=== PATIENT | male | born 1950 | race Caucasian/White ===

== ENCOUNTER 2019-03-04 21:34 | Inpatient (IN) ==
[2019-03-04] MEDS ORDERED: CLINDAMYCIN 600 MG/D5W 600 MG/50 ML IVPB IV ONE (23:00)
[2019-03-04 23:17] LABS: BASO# 0.02 X1000 (0.0-0.2); BASO% 0.2 % (0.0-0.8); EOS# 0.59 X1000 (0.0-0.7); EOS% 5.4 % (0.0-10.0); HEMATOCRIT 49.8 % (42.0-52.0); HEMOGLOBIN 16.3 g/dL (14.0-18.0); IMM GRAN# 0.02 X1000 (0.0-0.04); IMM GRAN% 0.2 % (0.0-0.5); LYMPH# 0.74 X1000 (1.2-3.4); LYMPH% 6.8 % (20.5-51.1); MCH 28.3 PG (27-31); MCHC 32.7 g/dL (33-37); MCV 86.5 FL (81-99); MONO# 0.76 X1000 (0.11-0.59); MPV 9.1 FL (7.4-10.4); NEUT# 8.78 X1000 (1.4-6.5); NEUT% 80.4 % (42.2-75.2); PLT 351 X1000 (130-400); RBC 5.76 XMIL (4.7-6.1); RDW 15.5 % (11.5-14.5); WBC 10.91 X1000 (4.8-10.8)
[2019-03-04 23:19] LABS: ALB/GLOB RATIO 1.4; ALBUMIN 4.6 g/dL (3.5-5.0); CALCIUM 9.3 mg/dL (8.8-10.2); CREATININE 1.4 mg/dL (0.7-1.2); POTASSIUM 5.2 mmol/L (3.5-5.1); TOTAL BILIRUBIN 0.42 mg/dL (0.20-1.00)
--- NOTE | 2019-03-04 23:27 | PROVIDER DOCUMENTATION ---
HPI-Rash/Wound/ReCheck - General Chief Complaint: Sores/Lesions Stated Complaint: CELLULITIS LEGS AND ARMS Time Seen by Provider: 03/04/19 23:07 Allergies/Adverse Reactions: Allergies Allergy/AdvReac Type Severity Reaction Status Date / Time No Known Allergies Allergy Verified 05/06/16 22:32 Home Medications: Home Medication List Medication Instructions Recorded Confirmed Last Taken Type Aspirin 81 mg PO QAM 05/06/16 05/06/16 05/06/16 08:00 History - History of Present Illness-Dermatology Nature of Presenting Problem: HPI: Pt reports to ED with bilateral lower extremity cellulitis. He was treated twice with keflex and bactrim, has failed OP therapy. Has DVT done 3 days was neg. Location: reports: lower extremity Quality: reports: painful Severity: reports: moderate Onset/Duration: reports: other (2 weeks ago) Timing: reports: still present Context/Associated Symptoms: reports: abrasion, edema, fever, lesion Identifiable cause?: No Exposure: reports: unknown cause Similar Symptoms Previously?: Yes Recently seen or treated by another doctor?: Yes Review of Systems - Adult - REVIEW OF SYSTEMS - ADULT Constitutional: reports: no symptoms reported Eyes: reports: no symptoms reported Ears, Nose, Mouth & Throat: reports: no symptoms reported Cardiovascular: reports: no symptoms reported Respiratory: reports: no symptoms reported Gastrointestinal: reports: no symptoms reported Genitourinary: reports: no symptoms reported Musculoskeletal: reports: no symptoms reported Integumentary: reports: see HPI Neurological: reports: no symptoms reported Psychiatric: reports: no symptoms reported Endocrine: reports: no symptoms reported Hematologic/Lymphatic: reports: no symptoms reported Allergic/Immunologic: reports: no symptoms reported All Other Systems: Reviewed and Negative Past History - Adult - PAST MEDICAL HISTORY-ADULT Review of Records: reports: Old Records Reviewed, Nursing Assessment Review, Medications Reviewed, Social history reviewed & non-contributory. Major Childhood Illnesses: reports: denies history Cardiovascular: reports: denies history Respiratory: reports: denies history Gastrointestinal: reports: denies history Obstetrical/Gynecological: reports: denies history Genitourinary: reports: denies history Musculoskeletal: reports: denies history Neurological: reports: denies history Endocrine/Immune: reports: denies history Other Conditions: reports: denies history - PRIOR SURGERIES/PROCEDURES Surgical/Procedure History: reports: none - IMMUNIZATION STATUS Childhood Immunizations: See Nurse Assessment Flu Vaccine: See Nurse Assessment - FAMILY HISTORY Family History: reviewed, not pertinent - SOCIAL HISTORY Smoking: denies Substance Use: none/never Alcohol Use Frequency: never Number of drinks per typical drinking period:: 2 drinks Living Situation: family Physical Exam-General - PHYSICAL EXAM-ADULT Initial Vital Signs Reviewed: Yes - CONSTITUTIONAL General Appearance: appears well, alert - EYES Eyes: PERRL/EOMI, pink conjunctivae - HEAD, EARS, NOSE, MOUTH & THROAT HENMT: normocephalic/atraumatic, moist mucous membranes - NECK Neck: full range of motion - RESPIRATORY Respiratory: chest non-tender, lungs clear, normal breath sounds - CARDIOVASCULAR Cardiovascular: normal peripheral pulses, regular rate, rhythm, no edema - GASTROINTESTINAL (ABDOMEN) Abdominal Exam: normal bowel sounds, non tender, soft. negative: guarding, rigid, rebound, tenderness - MUSCULOSKELETAL Back Exam: normal inspection, no CVA tenderness Extremity: normal range of motion, other (bilateral cellulitis extending to knee, moderate swelling. no palpable veins.) Peripheral Pulses: radial (R): 2+, radial (L): 2+, dorsalis-pedis (R): 2+, dorsalis-pedis (L): 2+ Progress - PLAN OF CARE/RESULTS Progress/Plan/Lab Results: Vital Signs - 8 hr 03/04/19 21:39 Temperature 99.1 F Pulse Rate 101 H Respiratory Rate 19 Blood Pressure 125/66 O2 Sat by Pulse Oximetry 100 Laboratory Results - last 24 hr 03/04/19 03/04/19 03/04/19 22:14 22:14 22:14 WBC 10.91 H RBC 5.76 Hgb 16.3 Hct 49.8 MCV 86.5 MCH 28.3 MCHC 32.7 L RDW Std Deviation 15.5 H Plt Count 351 MPV 9.1 Immature Gran % (Auto) 0.2 Neut % (Auto) 80.4 H Lymph % (Auto) 6.8 L [place] % (Auto) 7.0 Eos % (Auto) 5.4 Baso % (Auto) 0.2 Immature Gran # (Auto) 0.02 Neut # (Auto) 8.78 H Lymph # (Auto) 0.74 L [place] # (Auto) 0.76 H Eos # (Auto) 0.59 Baso # (Auto) 0.02 Sodium 136 Potassium 5.2 H Chloride 95 L Carbon Dioxide 27 Anion Gap 14 BUN 34 H Creatinine 1.4 H Estimated GFR/1.73 m2 51 BUN/Creatinine Ratio 24 Glucose 102 Calculated Osmolality 280 Calcium 9.3 Total Bilirubin 0.42 AST 19 ALT 14 Alkaline Phosphatase 76 Total Protein 8.0 Albumin 4.6 Globulin 3.4 Albumin/Globulin Ratio 1.4 Plasma Lactate 0.9 Orders Category Date Time Status Saline Loc NOW Care 03/04/19 23:27 Active BLOOD CULTURE [BLDCUL] Stat Lab 03/04/19 22:37 Received CBC WITH ELECTRONIC DIFF [HEME] Stat Lab 03/04/19 22:14 Completed CMP [COMPREHENSIVE METABOLIC PANEL] [CHEM] Stat Lab 03/04/19 22:14 Completed LACTATE, PLASMA [CHEM] Stat Lab 03/04/19 22:14 Completed Clindamycin 600 mg/D5w Med 03/04/19 23:00 Discontinued 600 mg in 50 ml IV NOW Clindamycin 600 mg/D5w Med 03/04/19 23:30 Ordered 600 mg in 50 ml IV Q8H A/P: Bilateral cellulitis to bilateral lower extremities, failed OP therapy x 2. Dr garner will admit. Started IV clindymycin. Result Diagrams: 03/04/19 22:14 03/04/19 22:14 Departure - Departure Date of Disposition Decision: 03/05/19 Time of Disposition Decision: 00:30 DIAGNOSIS: Cellulitis Disposition: HOME 01 Certified Medical Emergency: Emergent Condition: Stable Additional Freetext Instructions: We have examined and treated you today on an emergency basis only. This was not a substitute for, or an effort to provide, complete medical care. In most cases, you must let your doctor check you again. Tell your doctor about any new or lasting problems. We cannot recognize and treat all injuries or illnesses in one Emergency Department visit. If you had special tests, such as X-rays or CT scans, will be reviewed by radiologist and will call you if there are any new suggestions Follow up with primary care provider in 1 to 2 days if no improvement. If you do not have a primary care provider, you need to choose one as soon as possible. Take medicines as prescribed. Monitor for any side effects or adverse events from medications. If any side effect, adverse event or rash develops, or if you suspect any other adverse reaction to the medication, then discontinue the medication immediately and contact clinic /PCP or go to the nearest ER. Narcotic meds / sedative meds instruction - patent advised not to drive, operate any machinery or go into water after taking meds as it may impair mental ability to react to the situation in an appropriate manner. Continue other current medicines. Follow up with PCP within 24-48 hours, or sooner if symptoms worsen or fail to improve. Patient / guardian verbalizes understanding of treatment plan, medication, and side effects and agrees with treatment plan. Patient leaves ER in stable condition and ambulatory state. Return to ER as needed. Discharge instructions reviewed verbally and given to patient in written form. Follow up with primary care provider. Referrals and Follow-Ups: Jessica Ragsdale CRNP [Primary Care Provider] - - Critical Care Note This patient required my direct & personal management of CC.: No Attestation - Physician/ JOSR Attestation Patient care was provided by Advanced Practice Provider:: No The physician spent face to face time with patient:: Yes Advanced Practice Provider documentation review:: Supervising physician onsite and consulted in the evaluation and care of this patient. The physician did have a face to face encounter with the patient.
--- NOTE | 2019-03-05 01:02 | HISTORY AND PHYSICAL ---
PRIMARY CARE PHYSICIAN: MICHAEL Lawson. CHIEF COMPLAINT: Lower extremity edema and tenderness. HISTORY OF PRESENTING ILLNESS: A 68-year-old male with a history of diabetes mellitus type 2 and hypertension, who presented to the emergency department with 2 weeks' history of lower extremity edema and tenderness and erythema. He states that he had gone to the ER about 2 weeks ago and was given antibiotics. However, he had no improvement. He states that his legs were getting more tender and swollen and red. He was evaluated in the emergency department, and his symptoms were consistent with cellulitis. Subsequently, it was thought that due to failed outpatient therapy, he will require admission for further management. At the time of my examination, the patient denied any headache, fever, chills, chest pain, shortness of breath, hemoptysis, or weight changes but complained of lower extremity edema and tenderness. PAST MEDICAL HISTORY: Includes diabetes mellitus type 2 and hypertension. PAST SURGICAL HISTORY: None. ALLERGIES: No known drug allergies. CURRENT MEDICATIONS: He does not recall. SOCIAL HISTORY: A 20-ouzh-anvr history of smoking. Denies any history of alcohol or illicit drug use. FAMILY HISTORY: Positive for coronary disease in mother and father. REVIEW OF SYSTEMS: Fourteen-point review of systems is as in HPI. Other systems negative. PHYSICAL EXAMINATION: GENERAL: Cooperative, friendly male. He is resting more comfortably now. VITAL SIGNS: Temperature 99.1 degrees, pulse 101, respiration 19, blood pressure 125/66. HEENT: Atraumatic, normocephalic. Extraocular movements intact. PERRLA. NECK: Supple. CHEST: Clear to auscultation. CARDIOVASCULAR: Regular rate and rhythm. ABDOMEN: Soft. Positive bowel sounds. EXTREMITIES: There is moderate erythema bilaterally in lower extremities, plus edema and tenderness. GENITOURINARY: No bladder distention. SKIN: Warm. LABORATORIES AND STUDIES: Sodium 136, potassium 5.2, chloride 95, CO2 is 27, BUN is 34, creatinine is 1.4, glucose 102. WBCs 10.91, hemoglobin 16.3, hematocrit 49.8, platelets 351,000. ASSESSMENT: A 68-year-old male with a history of diabetes mellitus type 2 and hypertension, had presented to the emergency department with 2 weeks' history of worsening lower extremity edema, erythema, and tenderness. He apparently had gone to the emergency room about 2 weeks ago and was given oral antibiotics. However, he had no improvement. Due to failed outpatient therapy, it was thought that he will require admission for further management. 1. Bilateral lower extremity cellulitis/ edema 2. Diabetes mellitus type 2. 3. Hypertension. PLAN: 1. We will admit patient to medical floor. 2. We will start patient on IV antibiotics. 3. Continue with gentle diuresis with Lasix. 4. Monitor blood glucose and put the patient on sliding scale insulin regimen. 5. Monitor blood pressure and resume antihypertensive agent. 6. We will put the patient on DVT prophylaxis with heparin. 7. We will continue to follow and reassess and make further recommendation based on the patient's clinical course. cc: Benito Ambrocio MD MTDD
[2019-03-05] MEDS ORDERED: LASIX IV ONE (01:34)
[2019-03-05] MEDS ORDERED: VANCOMYCIN IV PER PHARMACY MISC SCH (01:34)
[2019-03-05] MEDS ORDERED: VANCOMYCIN 2,400 MG in NS 500 ML IV ONE (02:00)
[2019-03-05] MEDS: ROCEPHIN 1 GM in NS 50 ML IV SCH (02:05)
[2019-03-05] MEDS: HUMULIN R SUBQ SCH ×4 (06:12→21:23)
[2019-03-05] MEDS ORDERED: CLINDAMYCIN 600 MG/D5W 600 MG/50 ML IVPB IV SCH (07:00)
[2019-03-05] MEDS: HEPARIN SUBQ SCH ×2 (09:09→20:19)
[2019-03-05] MEDS ORDERED: ELIMITE 5% CREAM TOP ONE (10:44)
--- NOTE | 2019-03-05 11:19 | PROGRESS NOTE ---
DATE: 03/05/2019 SUBJECTIVE: This morning Mr. Ribeiro refers to be doing okay. He got admitted because of some bilateral lesions on his lower extremities, which have been going on for over a year. That seems to be traveling all the way up in between his thighs. According to him, he has received a couple rounds of oral antibiotics, but has not seemed to help. He also refers to have extreme itching, even before he came to the emergency room. 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 OBJECTIVE: Current Vital Signs: Blood pressure is 117/64, pulse of 105, respirations 16, temperature is 100.3 degrees. General: Mr. Ribeiro is a 68-year-old male. He is in bed. He is not in any cardiopulmonary distress. HEENT: Mucosa is pink and moist. Anicteric and acyanotic. Neck: Supple. Chest: Good air entry bilaterally. there are no crepitations, no rhonchi. Cardiovascular: Regular rate and rhythm. Abdomen: Soft, distended, but nontender. Extremities: No pedal edema. There are bilateral lower extremity erythematous changes. Seems to be mildly warm and a little tender. It extends all the way from the ankle to below the knees. There are also some erythematous changes in between both thighs in the medial aspect. Some of the lesions seem to be chronic with excoriations. The patient also has a lot of excoriations in between the toes and in between the fingers, which are extremely pruritic. There are some pruritic lesions also in between his gluteal space. LABORATORY DATA: From yesterday, has been reviewed. ASSESSMENT: 1. Longstanding bilateral stasis dermatitis, which seems to have superimposed cellulitis. Patient is getting intravenous antibiotics. Cultures have also been done with pending results. 2. Suspected scabies. Patient seems to have some pruritic lesions in between his fingers and his toes, also in his gluteal folds, and extending all the way in between his thighs. We are going to give him a treatment with permethrin and put him under contact precautions until we know what is going on. 3. Bilateral stasis in lower extremities. A Doppler ultrasound is said to have been done before, according to the patient, and that was negative. Would also need to rule out any other potential course for erythroderma. For now, will do inflammatory markers as well as COOKIE to rule out any possible rheumatological or autoimmune process. 2. Diabetes mellitus. Patient is on insulin regimen. 3. Renal failure, questionable etiology and duration. We do not have any baseline creatinine to compare. We will hydrate the patient overnight and repeat the labs. 4. Hypertension, controlled. cc: Bobby Pyle MD MTDD
[2019-03-05] MEDS: BENADRYL PO SCH ×3 (11:41→22:57)
[2019-03-05] MEDS: NS 1,000 ML IV SCH (13:17)
[2019-03-06] MEDS: ROCEPHIN 1 GM in NS 50 ML IV SCH (01:58)
[2019-03-06] MEDS ORDERED: VANCOMYCIN 1,900 MG in NS 500 ML IV SCH (02:00)
[2019-03-06] MEDS: NS 1,000 ML IV SCH ×2 (02:30→16:37)
[2019-03-06] MEDS: BENADRYL PO SCH ×4 (05:17→22:00)
[2019-03-06 07:12] LABS: BASO# 0.02 X1000 (0.0-0.2); BASO% 0.3 % (0.0-0.8); EOS# 0.71 X1000 (0.0-0.7); EOS% 9.3 % (0.0-10.0); HEMATOCRIT 41.4 % (42.0-52.0); HEMOGLOBIN 13.8 g/dL (14.0-18.0); LYMPH# 1.32 X1000 (1.2-3.4); LYMPH% 17.3 % (20.5-51.1); MCH 29.1 PG (27-31); MCHC 33.3 g/dL (33-37); MCV 87.3 FL (81-99); MONO# 1.11 X1000 (0.11-0.59); MONO% 14.6 % (1.7-9.3); MPV 9.2 FL (7.4-10.4); NEUT# 4.45 X1000 (1.4-6.5); NEUT% 58.5 % (42.2-75.2); PLT 279 X1000 (130-400); RBC 4.74 XMIL (4.7-6.1); RDW 15.2 % (11.5-14.5); WBC 7.61 X1000 (4.8-10.8)
[2019-03-06 07:38] LABS: ALBUMIN 3.5 g/dL (3.5-5.0); CALCIUM 8.1 mg/dL (8.8-10.2); CREATININE 1.5 mg/dL (0.7-1.2); PHOSPHORUS 2.5 mg/dL (2.7-4.5); POTASSIUM 4.2 mmol/L (3.5-5.1)
[2019-03-06] MEDS: ASPIRIN PO SCH (08:44)
[2019-03-06] MEDS: HEPARIN SUBQ SCH ×2 (08:45→21:24)
--- NOTE | 2019-03-06 09:53 | PROGRESS NOTE ---
DATE: 03/06/2019 SUBJECTIVE: Today, Mr. Ribeiro refers to be doing a whole lot better. He said the generalized itching has significantly improved after applying the permethrin cream. OBJECTIVE: Current Vital Signs: Blood pressure is 125/63, pulse of 83, respirations 18, temperature 98.8 degrees, the patient is saturating 98% on room air. General: Mr. Ribeiro is a 68- year-old gentleman. He was in bed. No distress. HEENT: Mucosa is pink and moist. Anicteric. Acyanotic. Neck: Supple. Chest: Good air entry bilaterally. There were no crepitations, no rhonchi. Cardiovascular: Regular rate and rhythm. No murmurs, no rubs, no gallops. GI: Abdomen is soft, distended, but nontender. Bowel sounds were present. No hepatosplenomegaly. Extremities: Both lower extremities are remarkably erythematous, but less tender than yesterday. Musculoskeletal: There are also some pruritic lesions in between the finger web spaces, which seems to be remarkably improved. BUILDING CONSTRUCTION SUPERINTENDENT: The patient is awake, alert, and oriented. LABORATORY DATA: WBC is down to 7.61, hemoglobin is 13.8, platelet count of 279,000. Chemistry is also reviewed. Sodium is 134, BUN is down to 28 from 34 yesterday. Calcium is low, and phosphorus is also low. We are going to check the vitamin D levels. So far, blood cultures have been 48 hours negative. ASSESSMENT: 1. Longstanding bilateral stasis dermatitis with superimposed cellulitis. The patient is on intravenous antibiotics. So far, blood cultures have been negative. 2. Suspected scabies. The patient was given a one-time treatment with permethrin, and he seems to be feeling a whole lot better. The pruritic lesions in between the web spaces seem to be getting better. 3. Diabetes mellitus, on insulin regimen. 4. Renal failure, questionable etiology and duration. Creatinine seems to be the same. I presume this is probably a longstanding kidney disease. 5. Hypertension, controlled. cc: Bobby Pyle MD
[2019-03-06] MEDS: HUMULIN R SUBQ SCH ×4 (11:34→21:25)
[2019-03-06] MEDS: KEFZOL 1 GM/D5W 1 GM/50 ML IVPB IV SCH ×2 (12:07→18:09)
[2019-03-06] MEDS: LANTUS INSULIN SUBQ SCH (21:23)
[2019-03-07] MEDS: KEFZOL 1 GM/D5W 1 GM/50 ML IVPB IV SCH ×2 (03:15→10:51)
[2019-03-07] MEDS: BENADRYL PO SCH ×4 (05:00→21:45)
[2019-03-07] MEDS: HUMULIN R SUBQ SCH ×4 (06:49→21:38)
[2019-03-07] MEDS: NS 1,000 ML IV SCH ×2 (06:49→07:54)
[2019-03-07] MEDS: HEPARIN SUBQ SCH ×2 (08:06→21:37)
[2019-03-07] MEDS: ASPIRIN PO SCH (08:06)
[2019-03-07 08:20] LABS: ALBUMIN 3.5 g/dL (3.5-5.0); CALCIUM 8.4 mg/dL (8.8-10.2); CREATININE 1.4 mg/dL (0.7-1.2); PHOSPHORUS 2.6 mg/dL (2.7-4.5); POTASSIUM 4.3 mmol/L (3.5-5.1)
[2019-03-07] MEDS ORDERED: VANCOMYCIN IV PER PHARMACY MISC SCH (10:00)
[2019-03-07] MEDS ORDERED: VANCOMYCIN 2,500 MG in NS 500 ML IV ONE (11:00)
[2019-03-07] MEDS ORDERED: VANCOMYCIN 1,750 MG in NS 250 ML IV SCH (11:00)
[2019-03-07] MEDS: KEFZOL 2 GM/D5W 2 GM/50 ML IVPB IV SCH ×2 (16:55→23:00)
[2019-03-07] MEDS: LANTUS INSULIN SUBQ SCH (21:38)
[2019-03-08] MEDS: BENADRYL PO SCH ×4 (04:10→21:56)
[2019-03-08] MEDS: HUMULIN R SUBQ SCH ×4 (06:05→21:57)
[2019-03-08] MEDS: KEFZOL 2 GM/D5W 2 GM/50 ML IVPB IV SCH ×3 (08:03→23:45)
[2019-03-08] MEDS: HEPARIN SUBQ SCH ×2 (08:05→21:56)
[2019-03-08] MEDS: ASPIRIN PO SCH (08:05)
[2019-03-08 14:45] LABS: BASO# 0.02 X1000 (0.0-0.2); BASO% 0.3 % (0.0-0.8); EOS# 1.27 X1000 (0.0-0.7); HEMOGLOBIN 14.7 g/dL (14.0-18.0); LYMPH% 17.7 % (20.5-51.1); MCH 29.2 PG (27-31); MCHC 32.7 g/dL (33-37); MCV 89.3 FL (81-99); MONO# 0.99 X1000 (0.11-0.59); MONO% 12.5 % (1.7-9.3); MPV 8.7 FL (7.4-10.4); NEUT# 4.25 X1000 (1.4-6.5); NEUT% 53.5 % (42.2-75.2); PLT 292 X1000 (130-400); RBC 5.04 XMIL (4.7-6.1); RDW 15.4 % (11.5-14.5); WBC 7.93 X1000 (4.8-10.8)
[2019-03-08 15:01] LABS: AGAP 14; BUN 20 mg/dL (8-22); CALCIUM 8.8 mg/dL (8.8-10.2); CHLORIDE 98 mmol/L (98-107); COSMO 272; CREATININE 1.2 mg/dL (0.7-1.2); ESTIMATED GFR > 60; GLUCOSE 89 mg/dL (70-104); POTASSIUM 4.4 mmol/L (3.5-5.1); SODIUM 135 mmol/L (136-145); TCO2 23 mmol/L (25-35)
[2019-03-08] MEDS: LANTUS INSULIN SUBQ SCH (21:57)
[2019-03-09] MEDS: BENADRYL PO SCH ×5 (05:34→22:11)
[2019-03-09] MEDS: HUMULIN R SUBQ SCH ×4 (06:20→22:11)
[2019-03-09 06:57] LABS: BASO# 0.03 X1000 (0.0-0.2); BASO% 0.3 % (0.0-0.8); HEMOGLOBIN 15.6 g/dL (14.0-18.0); IMM GRAN# 0.02 X1000 (0.0-0.04); IMM GRAN% 0.2 % (0.0-0.5); LYMPH% 17.5 % (20.5-51.1)
[2019-03-09 07:47] LABS: CALCIUM 8.9 mg/dL (8.8-10.2); CREATININE 1.3 mg/dL (0.7-1.2); POTASSIUM 4.3 mmol/L (3.5-5.1)
--- NOTE | 2019-03-09 07:47 | PROGRESS NOTE ---
DATE: 03/07/2019 SUBJECTIVE: This morning Mr. Ribeiro refers to be doing a little better. He was somehow itching a little more than yesterday. OBJECTIVE: Vitals: Blood pressure 141/59, pulse 52, respirations 18, and temperature 98.1. General: Mr. Ribeiro is a 68-year-old male. He is in bed in no distress. Mucosa is pink and moist. Anicteric and acyanotic. Neck is supple. Chest with good air entry bilaterally. There are no crepitations. No rhonchi. Cardiovascular: Regular rate and rhythm. No murmurs. No rubs. No gallops. GI: Abdomen is soft distended but nontender. Bowel sounds are present. Extremities: Both are markedly edematous and red but less tender. Musculoskeletal: There are some pruritic lesions in between the finger web spaces and also the upper bilateral arms. CONSTRUCTION TECHNOLOGY INSTRUCTOR: The patient is awake, alert and oriented. LABORATORY DATA: Chemistry is reviewed. Creatinine is 1.4. Rest of the chemistry is unremarkable. ASSESSMENT: 1. Longstanding bilateral stasis dermatitis with super imposed cellulitis. The patient is on IV antibiotics. So far, blood cultures have been negative. ID has been consulted. 2. Suspected scabies versus idiopathic urticaria. The patient has been given permethrin. He felt better yesterday. He is currently on hydroxyzine. 3. Diabetes mellitus on insulin regimen. 4. CKD stage 3A. Noted. 5. Hypertension controlled. PLAN: In general, Mr. Ribeiro refers to be doing a little better today, but the lower extremities look almost the same as yesterday. No significant improvement. He is on IV cefazolin. We have added vancomycin today. We will get ID to see him. Disposition is going to depend on the rest of the hospital course. cc: Bobby Pyle MD MTDD
[2019-03-09 07:58] LABS: EOS# 1.61 X1000 (0.0-0.7); EOS% 18.3 % (0.0-10.0); HEMATOCRIT 46.9 % (42.0-52.0); LYMPH# 1.54 X1000 (1.2-3.4); MCH 28.9 PG (27-31); MCHC 33.3 g/dL (33-37); MONO# 0.96 X1000 (0.11-0.59); MONO% 10.9 % (1.7-9.3); MPV 9.3 FL (7.4-10.4); NEUT# 4.63 X1000 (1.4-6.5); NEUT% 52.8 % (42.2-75.2); PLT 353 X1000 (130-400); RBC 5.39 XMIL (4.7-6.1); RDW 15.3 % (11.5-14.5); WBC 8.79 X1000 (4.8-10.8)
[2019-03-09] MEDS: ASPIRIN PO SCH (09:19)
[2019-03-09] MEDS: HEPARIN SUBQ SCH ×2 (09:19→21:12)
[2019-03-09] MEDS: KEFZOL 2 GM/D5W 2 GM/50 ML IVPB IV SCH (10:24)
--- NOTE | 2019-03-09 15:36 | PROGRESS NOTE ---
DATE: 03/09/2019 SUBJECTIVE: Patient reports feeling fine. Denies any fever or chills. OBJECTIVE: Vital Signs: Temperature 97.9, heart rate 95, respiratory rate 16, blood pressure 149/67. O2 sat 100% on room air. General: This is a chronically ill appearing 68-year-old male lying in bed in no acute distress. Cardiovascular: S1, S2 heard. No murmurs, gallops or rubs. Regular rate and rhythm. Respiratory: Clear bilaterally to auscultation. No work of breathing or using accessory muscles. Abdomen: Soft. A little bit distended but nontender to palpation. Bowel sounds present. No organomegaly. Extremities: Markedly edematous toes with many weeping lesions all over both legs, definitely less edematous today. Neurologic: Patient alert oriented x 3. Moves 4 extremities. LABORATORY DATA: Reviewed. ASSESSMENT AND PLAN: 1. Long-standing bilateral stasis dermatitis with superimposed cellulitis. Patient continues to be on cefazolin 2 g IV 8 hours. ID is following this patient. We will follow recommendations. 2. Suspected scabies. The patient has been given 1 dose of Primatene. 3. Diabetes mellitus type 2. We will continue with sliding scale insulin and Accu-Chek before meals and also at bedtime. 4. Chronic kidney disease stage 2. We will continue to monitor CBC. 5. Hypertension. That condition is well controlled. We will continue with same management. 6. Disposition: I think this patient is slowly improving, but improving. We will continue with the same antibiotic management for at least a couple of days. cc: Mc Smyth MD
[2019-03-09] MEDS: MAXIPIME 2 GM in NS 100 ML IV SCH (15:38)
[2019-03-09] MEDS: DIFLUCAN PO SCH (16:28)
--- NOTE | 2019-03-09 17:00 | INFECTIOUS DISEASE CONSULT REP ---
DATE: 03/07/2019 CONCLUSION: The patient has bilateral leg cellulitis. He also appears to have scabies. RECOMMENDATIONS: I agree with Dr. Pyle's treatment of the patient with permethrin. Also, I agree with treating the patient with Ancef, the dose of which has been modified because of the patient's renal insufficiency. Also, I have ordered to elevate the foot of the patient's bed with the manual gatch at all times and for the patient to elevate his legs as long as possible. DISCUSSION: The patient tells me that approximately 4 weeks ago, he developed erythema and swelling in his legs. They were painful. He did not have fever. He tells me in the past 1 or 2 days, he has developed a rash that is primarily on his arms. It is not pruritic. It does not have any vesicles on it. There is a smaller amount of rash on his legs associated with erythema from the patient's cellulitis of the legs. PAST MEDICAL HISTORY/REVIEW OF SYSTEMS: Eyes and Ears: He wears glasses. His hearing is okay. Neck: No stiffness. Respiratory: No cough or shortness of breath. Cardiac: No chest pain or palpitations. GI: No nausea, vomiting, or diarrhea. : No dysuria or flank pain. Neurologic: No seizures and no loss of motor or sensory function. Integument: See present illness. PREVIOUS HOSPITALIZATIONS AND OPERATIONS: He has had removal of a skin cancer. MEDICAL DISEASES: Positive for diabetes mellitus, hypertension, and skin cancer. INFECTIOUS DISEASE HISTORY: Negative for pneumonia and UTI. FAMILY HISTORY: Positive for diabetes mellitus, hypertension, myocardial infarction, stroke, and cancer. SOCIAL HISTORY: [place] He does not have any pets. He smokes cigarettes. He does not drink alcoholic beverages or abuse drugs. ALLERGIES: He has no known drug allergies. HOME MEDICATIONS: Include Lasix, hydrochlorothiazide, Glucophage, and lisinopril. PHYSICAL EXAMINATION: Vital Signs: Temperature is 98.1 degrees, pulse 82, respirations 18, blood pressure 141/59. Patient weighs 108 kg. General: This is an obese, elderly male. He is in no acute distress. Head, Eyes, Ears, Nose, and Throat: He can hear my spoken words and see near objects. He is edentulous. He does not have any white coating on his tongue. Sinuses are not tender. Neck: No meningismus. Lungs: Clear to auscultation. Cardiovascular: Heart rate is regular. The patient has bilateral leg erythema and edema. Abdomen: Soft and nontender. Neurologic: The patient is alert. He can move his extremities. He can ambulate without problems. His sensation is intact to touch. His memory as regarding his medical history was slightly reduced. Integument: The patient has a diffuse scaling rash on the arms and to a lesser extent on the legs. I did not see any pustules or vesicles. The rash was light purplish color in areas. Thank you for the consult. cc: Korey Vizcarra MD
[2019-03-09] MEDS: ZYVOX PO SCH ×2 (17:37→21:12)
--- NOTE | 2019-03-09 21:01 | INFECTIOUS DISEASE PROGRESS NO ---
DATE: 03/09/2019 PRESENT ILLNESS: Mr. Ribeiro has been treated for stasis dermatitis with superimposed cellulitis to his bilateral lower extremities. MEDICATIONS: He has been receiving Kefzol 2 g IV every 8 hours which we will change today. PHYSICAL EXAMINATION: Vital Signs: Temperature is 97.9, pulse rate 104, respiratory rate 14, blood pressure 93/68. O2 sats 100% on room air. General: This is a chronically ill-appearing, elderly obese gentleman. He is lying in the bed, currently in no acute distress. HEENT: Atraumatic, normocephalic. Oral mucous membranes are pink and moist. Conjunctivae are pink. Neck: Supple. Trachea is midline. Cardiovascular: Heart rate is currently irregular. Respiratory: Lung sounds are clear to auscultation bilaterally. No work of breathing is noted. Integumentary: There are scattered rashes to all his extremities with dry scabby abrasions. He has had a dressing and wrap placed to the right lower extremity. Left lower extremity has continued erythema which is mainly to the calf, but also goes into the medial thigh. Neurologic: He is awake, alert, oriented. Able to move around in the bed independently. LABORATORY AND X-RAY: Today his white count is 8.79, hemoglobin 15.6, platelet count 353,000. Creatinine is 1.3. GFR 55. His left arm and right leg both show no growth on the preliminary cultures. No imaging reports today. ASSESSMENT AND PLAN: Mr. Ribeiro is being treated for lower extremity cellulitis which does not seem to be improving much. He is keeping his lower extremities elevated. At this point, we will go ahead and discontinue his Kefzol and start him on a more broad-spectrum coverage using Zyvox 600 mg by mouth and cefepime 2 g IV every 12 hours. The wound care nurse has noted a possible fungal component to the rash, so we will also add on fluconazole 400mg by mouth daily. These plans have been discussed with and recommended by Dr. Vizcarra. COMORBIDITIES: For Mr. Ribeiro include that he is elderly and obese with diabetes mellitus and chronic stasis dermatitis. Dictated by MICHAEL Kilgore for Korey Vizcarra MD cc: Korey Vizcarra MD [facility]
[2019-03-09] MEDS: LANTUS INSULIN SUBQ SCH (22:12)
[2019-03-10] MEDS: MAXIPIME 2 GM in NS 100 ML IV SCH ×2 (02:30→14:04)
[2019-03-10] MEDS: BENADRYL PO SCH ×4 (05:48→22:30)
[2019-03-10] MEDS: HUMULIN R SUBQ SCH ×4 (06:42→21:32)
[2019-03-10 07:43] LABS: BASO# 0.02 X1000 (0.0-0.2); BASO% 0.2 % (0.0-0.8); EOS# 2.19 X1000 (0.0-0.7); EOS% 21.7 % (0.0-10.0); HEMATOCRIT 46.4 % (42.0-52.0); HEMOGLOBIN 15.4 g/dL (14.0-18.0); IMM GRAN# 0.02 X1000 (0.0-0.04); IMM GRAN% 0.2 % (0.0-0.5); LYMPH# 2.04 X1000 (1.2-3.4); LYMPH% 20.2 % (20.5-51.1); MCH 28.9 PG (27-31); MCHC 33.2 g/dL (33-37); MCV 87.1 FL (81-99); MONO# 1.03 X1000 (0.11-0.59); MONO% 10.2 % (1.7-9.3); MPV 9.4 FL (7.4-10.4); NEUT% 47.5 % (42.2-75.2); PLT 356 X1000 (130-400); RBC 5.33 XMIL (4.7-6.1); RDW 15.2 % (11.5-14.5)
[2019-03-10 07:45] LABS: CALCIUM 8.7 mg/dL (8.8-10.2); CREATININE 1.4 mg/dL (0.7-1.2)
[2019-03-10] MEDS: ZYVOX PO SCH ×3 (07:48→21:32)
[2019-03-10] MEDS: HEPARIN SUBQ SCH ×3 (07:48→21:31)
[2019-03-10] MEDS: ASPIRIN PO SCH ×2 (07:48→10:01)
[2019-03-10 08:31] LABS: EOS 17 % (1-10); LYMPHS 18 % (21-51); MONO 10 % (1-9); SEGS 55 % (42-75)
[2019-03-10] MEDS: DIFLUCAN PO SCH (14:05)
--- NOTE | 2019-03-10 15:45 | PROGRESS NOTE ---
DATE: 03/10/2019 SUBJECTIVE: Patient reports still having those weeping lesions in both legs. He is still complaining of mild pain right lower extremity. OBJECTIVE: Vital Signs: Temperature 98 degrees, heart rate 97, respiratory rate 14, blood pressure 127/82, and O2 saturation 99% on room air. General: This is a chronically ill- appearing, 68-year-old male, lying in bed, in no acute distress. Cardiovascular: S1, S2 heard. No murmurs, gallops, or rubs. Regular rate and rhythm. Respiratory: Clear bilaterally to auscultation. No work of breathing or using accessory muscles. Abdomen: Soft, a little bit distended but nontender to palpation. Bowel sounds present. No organomegaly. Extremities: Markedly edematous toes with weeping lesions all over both legs. Definitely less reddening yesterday. Neurological: Patient alert and oriented x3. Moves all 4 extremities. LABORATORY DATA: Reviewed. ASSESSMENT AND PLAN: 1. Longstanding bilateral stasis dermatitis with superimposed cellulitis. Because of lack of clinical response, ID has decided to change antibiotics from cefazolin to Zyvox, cefepime, and also because it is for this patient to have a fungal infection superimposed. We will start fluconazole, and we will go from there. 2. Diabetes mellitus type 2. We will continue with sliding scale insulin. Accu-Chek before meals and also at bedtime. 3. Chronic kidney disease stage 2. We will continue to monitor BMP. 4. Hypertension. Blood pressure is under control. Continue with the same medications. 5. Disposition. At this point, we are planning to keep him over the weekend and check on Thursday how he is doing with his new set of medications. cc: Mc Smyth MD
--- NOTE | 2019-03-10 16:53 | INFECTIOUS DISEASE PROGRESS NO ---
DATE: 03/10/2019 PRESENT ILLNESS: Mr. Ribeiro has a bilateral lower extremity cellulitis as well as a chronic stasis dermatitis. MEDICATIONS: Yesterday he was started on Zyvox 600 mg by mouth every 12 hours and cefepime 2 g IV every 12 hours. He is also receiving fluconazole 400 mg by mouth daily. PHYSICAL EXAMINATION: Vital Signs: Temperature is 97.9 degrees, pulse rate 95, respiratory rate 14, blood pressure 143/78, O2 saturation is 100% on room air. General: This is a chronically ill- appearing, obese, elderly gentleman. He is sitting up in a chair currently in no acute distress. HEENT: Atraumatic, normocephalic. Oral mucous membranes are pink and moist. Conjunctivae are pink. Neck: Supple. Trachea is midline. Respiratory: Lung sounds are bilaterally clear to auscultation. No work of breathing is noted. Cardiovascular: Heart rate is regular. There is 1 to 2+ pitting edema noted to lower extremities bilaterally. Integumentary: He has scattered rashes to all extremities with dry scabby abrasion. There is a dressing with stocking in place to the right lower extremity. It was placed by the wound care nurse yesterday. The left lower extremity has continued erythema to the calf and up into the area of the medial thigh. There is some clear, weeping drainage to his forearms bilaterally, and serosanguineous drainage noted to his right lower extremity. Neurologic: He is awake, alert, oriented, and moves all extremities independently. LABORATORY AND X-RAY: Today his white count is 10.10, hemoglobin 15.4, platelet count 356,000. Creatinine 1.4, GFR 51. His left arm has grown a gram-positive coccus which has yet to be identified. On the preliminary report of his right leg there is no growth so far. Blood cultures had shown no growth after 5 days. No imaging reports today. ASSESSMENT AND PLAN: Mr. Ribeiro is being treated for upper and lower extremity cellulitis bilaterally. He is receiving Zyvox and cefepime which we will continue. He is also receiving fluconazole for the possibility of a fungal component to the rash which we will also continue. These plans have been discussed with and recommended by Dr. Vizcarra. COMORBIDITIES: Include that he is elderly and obese with diabetes mellitus and chronic stasis dermatitis. Dictated by MICHAEL Kilgore for Korey Vizcarra MD cc: Korey Vizcarra MD [facility]
[2019-03-10] MEDS ORDERED: XYLOCAINE 1% INJ ONE (18:19)
--- NOTE | 2019-03-10 19:49 | PROGRESS NOTE ---
DATE: 03/08/2019 SUBJECTIVE: Patient reports still having those weeping lesions in both legs. OBJECTIVE: Vital Signs: Temperature 98.1, heart rate 88, respiratory rate 21, blood pressure 130/62, and O2 saturation 96% on room air. General: This is a chronically ill appearing, 68-year- old male, lying in bed, in no acute distress. Cardiovascular: S1, S2 heard. No murmurs, gallops, or rubs. Regular rate and rhythm. Respiratory: Clear bilaterally to auscultation. No work of breathing or using accessory muscles. Abdomen: Soft. Nontender to palpation. Bowel sounds present. No organomegaly. Extremities: No clubbing, cyanosis, or edema. Peripheral pulses present in both legs. Both lower extremities are remarkably erythematous, less than yesterday. Some pruritic lesions in between finger space and weeping lesions all around on both lower extremities, little less erythematous. Neurological: Patient alert and oriented x3. Moves all four extremities. LABORATORY DATA: There is no white cell count from today. There is no BMP from yesterday. ASSESSMENT AND PLAN: 1. Bilateral stasis dermatitis with superimposed bilateral lower extremity cellulitis. The patient is on cefazolin 2 grams every eight hours as per Infectious Disease recommendation. Will continue with the same management. I think considering how this patient is doing, we will continue with wound care. 2. Suspected scabies. The patient has received permethrin. 3. Acute renal failure. We do not know if that is acute on chronic. We have not checked creatinine yesterday, so we are going to check it today and will monitor basic metabolic panel daily. 4. Hypertension. Well controlled. 5. Diabetes mellitus type 2. We will continue with sliding scale insulin. Accu-Chek before meals and also at bedtime. 6. Disposition. We will continue to monitor this patient closely. cc: MD CONSTANTINO Ford
[2019-03-10] MEDS: LANTUS INSULIN SUBQ SCH (21:32)
--- NOTE | 2019-03-10 21:49 | OPERATIVE NOTE ---
PROCEDURE DATE: 03/10/2019 PREOPERATIVE DIAGNOSIS: Diffuse erythematous rash, possible vasculitis. POSTOPERATIVE DIAGNOSIS: Diffuse erythematous rash, possible vasculitis. PROCEDURE: Punch biopsy of left leg skin. SURGEON: Tian Zacarias MD. ESTIMATED BLOOD LOSS: Scant. COMPLICATIONS: None apparent. TECHNIQUE: The risks, benefits and alternatives were discussed with the patient including infection, bleeding, wound dehiscence, and other imponderables. He understands and agrees to proceed. The skin of the left leg around an area of rash was prepped with Betadine. 1% lidocaine was used to anesthetize the skin. A 3.5 mm punch biopsy was then used to take a skin specimen. This was put in a formalin cup and taken to the lab after the procedure was over. The skin was closed with interrupted 3-0 nylon. A sterile gauze dressing was applied. There were no apparent complications. cc: Tian Zacarias MD
[2019-03-11] MEDS: MAXIPIME 2 GM in NS 100 ML IV SCH ×2 (02:23→13:26)
[2019-03-11] MEDS: BENADRYL PO SCH ×4 (04:24→21:36)
[2019-03-11 07:30] LABS: BASO# 0.02 X1000 (0.0-0.2); BASO% 0.2 % (0.0-0.8); EOS# 2.31 X1000 (0.0-0.7); EOS% 24.6 % (0.0-10.0); HEMATOCRIT 42.6 % (42.0-52.0); HEMOGLOBIN 14.2 g/dL (14.0-18.0); IMM GRAN# 0.02 X1000 (0.0-0.04); IMM GRAN% 0.2 % (0.0-0.5); LYMPH# 1.84 X1000 (1.2-3.4); LYMPH% 19.6 % (20.5-51.1); MCH 29.1 PG (27-31); MCHC 33.3 g/dL (33-37); MCV 87.3 FL (81-99); MONO# 0.99 X1000 (0.11-0.59); MONO% 10.5 % (1.7-9.3); MPV 9.1 FL (7.4-10.4); NEUT# 4.22 X1000 (1.4-6.5); NEUT% 44.9 % (42.2-75.2); PLT 332 X1000 (130-400); RBC 4.88 XMIL (4.7-6.1); RDW 15.5 % (11.5-14.5)
[2019-03-11] MEDS: HUMULIN R SUBQ SCH ×4 (07:31→20:55)
[2019-03-11] MEDS: ZYVOX PO SCH ×3 (07:45→21:36)
[2019-03-11] MEDS: HEPARIN SUBQ SCH ×3 (07:46→21:36)
[2019-03-11] MEDS: ASPIRIN PO SCH ×2 (07:46→11:14)
[2019-03-11 07:49] LABS: CALCIUM 8.8 mg/dL (8.8-10.2); CREATININE 1.4 mg/dL (0.7-1.2); POTASSIUM 4.4 mmol/L (3.5-5.1)
[2019-03-11 07:57] LABS: BANDS 4 % (0-1); EOS 16 % (1-10); LYMPHS 14 % (21-51); MONO 14 % (1-9); SEGS 52 % (42-75)
--- NOTE | 2019-03-11 12:15 | INFECTIOUS DISEASE PROGRESS NO ---
DATE: 03/08/2019 PRESENT ILLNESS: Mr. Ribeiro is being treated for bilateral lower extremity cellulitis. MEDICATIONS: He is receiving Kefzol 2 g IV every 8 hours. PHYSICAL EXAMINATION: Vital signs: Temperature 98.1, pulse rate 88, respiratory rate 21, blood pressure 130/62, O2 saturation 96% on room air. General: This is a chronically- ill appearing, obese, elderly male. He is lying in the bed currently, in no acute distress. HEENT: Atraumatic, normocephalic. Oral mucous membranes are pink and moist. Conjunctivae are pink. Neck is supple. Trachea is midline. Cardiovascular: Heart rate is regular. Respiratory: Lung sounds are clear to auscultation bilaterally. No work of breathing is noted. Abdomen is soft, obese, and nontender. Bowel sounds are active. Extremities: There is bilateral erythema noted to the calves and extending mildly up toward the medial thighs bilaterally. There is also lower extremity edema noted as well as some red and clear drainage noted on the bed sheets. Neurologic: He is awake, alert, and oriented. Able to move all of his extremities in the bed without any noted weakness. LABORATORY AND X-RAY: None available today. ASSESSMENT AND PLAN: Mr. Ribeiro is being treated for lower extremity cellulitis after a bout with scabies, which has been treated. He is currently receiving Ancef which we will continue. He has moisture noted to his right lower extremity which has been cultured. We will go ahead and send that to the lab to see if we can isolate an organism from his leg. I have gone ahead and put in a consult for the wound care nurse to see him tomorrow in order to recommend the most appropriate therapy for his lower extremities. Blood work has already been ordered for in the morning, however most recently the patient's white count and temperature have been normal. These plans have been discussed with and recommended by Dr. Vizcarra. COMORBIDITIES: Include that he is obese and elderly with diabetes mellitus and [id number] smoking history, and chronic stasis dermatitis. Dictated by MICHAEL Kilgore for Korey Vizcarra MD cc: Korey Vizcarra MD [facility]
[2019-03-11] MEDS: DIFLUCAN PO SCH (13:26)
--- NOTE | 2019-03-11 16:29 | PROGRESS NOTE ---
DATE: 03/11/2019 SUBJECTIVE: Patient reports feeling basically the same. Denies any fever or chills. OBJECTIVE: Vital Signs: Temperature 98.2 degrees, heart rate 86, respiratory 17, blood pressure 119/59, O2 saturation 98% on room air. General Examination: This is a chronically ill-appearing, 68-year-old male, lying in bed, in no acute distress. Cardiovascular: S1, S2 heard. No murmurs, gallops, or rubs. Regular rate and rhythm. Respiratory: Clear bilaterally to auscultation. No work of breathing or using accessory muscles. Abdomen: Soft, nontender to palpation. A little bit distended. Bowel sounds present. No organomegaly. Extremities: Right lower extremity wrapped with dressing from middle thigh to ankle. Some weeping lesions in both legs. A little bit less red than yesterday. Neurological: Patient alert and oriented x3. Moves 4 extremities. LABORATORY DATA: Reviewed. ASSESSMENT AND PLAN: 1. Longstanding bilateral stasis dermatitis with superimposed cellulitis. The patient has been started since yesterday on Zyvox, cefepime, and fluconazole day #2 of those medications. At this point also, because of suspicion for possible vasculitis, skin biopsy was performed yesterday. We will see what it shows. 2. Diabetes mellitus type 2. We will continue with sliding scale insulin. Accu-Chek before meals and also at bedtime. 3. Chronic kidney disease stage 2. We will continue to monitor BMP. 4. Hypertension. Blood pressure is under control. We will continue with same management. 5. Disposition. At this point, I am planning to keep this patient over the weekend. We will re- evaluate him Thursday. cc: Mc Smyth MD
--- NOTE | 2019-03-11 17:33 | INFECTIOUS DISEASE PROGRESS NO ---
DATE: 03/11/2019 PRESENT ILLNESS: The patient has bilateral leg cellulitis as well as a dermatitis involving the legs and arms. MEDICATIONS: The patient is on a combination of Zyvox, cefepime, and fluconazole. PHYSICAL EXAMINATION: Vital Signs: Temperature is 98.2 degrees, pulse 86, respirations 19, blood pressure 119/59. General: This is a chronically ill-appearing, obese, elderly male. He is in no acute distress. Head, Eyes, Ears, Nose, and Throat: He can hear my spoken words and see near objects. He does not have any white coating of his tongue. Neck: No meningismus. Lungs: Clear to auscultation. Cardiovascular: Regular heart rate. Abdomen: Soft and nontender. Extremities: The patient has bilateral leg edema. There is erythema of both legs as well as skin that had scaling and some erythematous areas that had a serous drainage. The legs also are erythematous. Neurologic: The patient is alert. He can ambulate. There is no tremor. His memory as regarding his medical history was intact. The patient is awake. He can move his extremities. He is able to walk. There is no tremor. LAB AND X-RAY: The patient yesterday had a skin biopsy, the results of which are pending. The culture from the patient's left arm grew Staphylococcus epidermidis. The patient's CBC shows a white blood cell count of 9400, hemoglobin 14.2, and platelet count 332,000. Creatinine is 1.4. GFR is 51. Left upper extremity culture grew Staphylococcus epidermidis. A skin biopsy was seen today, the results of which are pending. ASSESSMENT AND PLAN: The patient has leg cellulitis, and leg and arm dermatitis. My plan is to continue his current antibiotics. The patient is receiving Zyvox, fluconazole, and cefepime. My plan is to continue the current antibiotics of Zyvox, cefepime, and fluconazole pending the results of the skin biopsy which was done this morning by Dr. Zacarias. COMORBIDITIES: He is elderly. He is obese. He also has diabetes mellitus and chronic stasis dermatitis. cc: Korey Vizcarra MD
[2019-03-11] MEDS: LANTUS INSULIN SUBQ SCH (20:55)
[2019-03-12] MEDS: BENADRYL PO SCH ×4 (05:45→22:05)
[2019-03-12] MEDS: MAXIPIME 2 GM in NS 100 ML IV SCH ×2 (05:45→16:11)
[2019-03-12] MEDS: HUMULIN R SUBQ SCH ×4 (06:18→20:09)
[2019-03-12 07:05] LABS: BASO# 0.03 X1000 (0.0-0.2); BASO% 0.3 % (0.0-0.8); EOS# 2.76 X1000 (0.0-0.7); EOS% 27.3 % (0.0-10.0); HEMATOCRIT 41.1 % (42.0-52.0); HEMOGLOBIN 13.5 g/dL (14.0-18.0); IMM GRAN# 0.03 X1000 (0.0-0.04); IMM GRAN% 0.3 % (0.0-0.5); LYMPH# 1.94 X1000 (1.2-3.4); LYMPH% 19.2 % (20.5-51.1); MCH 28.7 PG (27-31); MCHC 32.8 g/dL (33-37); MCV 87.4 FL (81-99); MONO# 1.06 X1000 (0.11-0.59); MONO% 10.5 % (1.7-9.3); MPV 8.9 FL (7.4-10.4); NEUT# 4.28 X1000 (1.4-6.5); NEUT% 42.4 % (42.2-75.2); PLT 311 X1000 (130-400); RDW 15.6 % (11.5-14.5)
[2019-03-12 07:16] LABS: CALCIUM 8.6 mg/dL (8.8-10.2); CREATININE 1.4 mg/dL (0.7-1.2); POTASSIUM 4.4 mmol/L (3.5-5.1)
[2019-03-12 07:38] LABS: EOS 29 % (1-10); LYMPHS 17 % (21-51); MONO 4 % (1-9); SEGS 50 % (42-75)
[2019-03-12] MEDS: HEPARIN SUBQ SCH ×2 (09:01→20:10)
[2019-03-12] MEDS: ZYVOX PO SCH ×2 (09:01→20:10)
[2019-03-12] MEDS: ASPIRIN PO SCH (09:02)
[2019-03-12] MEDS: DIFLUCAN PO SCH (14:52)
--- NOTE | 2019-03-12 15:08 | PROGRESS NOTE ---
DATE: 03/12/2019 SUBJECTIVE: Patient reports feeling fine. Denies any fever or chills. OBJECTIVE: Vital Signs: Temperature 97.8 degrees, heart rate 80, respiratory 22, blood pressure 111/81, O2 saturation 98% on room air. General: This is a chronically ill-appearing, 68-year- old male, lying in bed, in no acute distress. Cardiovascular: S1, S2 heard. No murmurs, gallops, or rubs. Regular rate and rhythm. Respiratory: Clear bilaterally to auscultation. No work of breathing or using accessory muscles. Abdomen: Soft, nontender to palpation. A little bit distended but nontender to palpation. Bowel sounds present. No organomegaly. Extremities: Right lower extremity prepped with dressing from middle thigh to ankle, and the left lower extremity weeping lesions and reddening all over the extremity and also in both upper extremities as well. Neurological: Patient alert and oriented x3. Moves 4 extremities. LABORATORY DATA: Reviewed. ASSESSMENT AND PLAN: 1. Long-standing bilateral stasis dermatitis with superimposed cellulitis. We will continue with Zyvox, cefepime and fluconazole, day #3 for all those medications. At this point also, we are waiting for results of skin biopsy because of suspicion for possible vasculitis. At this point, we will continue with current medications. 2. Diabetes mellitus type 2. We will continue with Accu-Cheks before meals and also at bedtime and sliding scale insulin as well. 3. Chronic kidney disease stage 2. We will continue to monitor CBC, BMP. 4. Hypertension. Pressure blood is under control. We will continue with the same medications. 5. Disposition. We are planning to keep this patient at least until Thursday to see how this patient is doing with these 3 medications, and we will go from there. cc: Mc Smyth MD
[2019-03-12] MEDS: LANTUS INSULIN SUBQ SCH (22:04)
[2019-03-13] MEDS: MAXIPIME 2 GM in NS 100 ML IV SCH ×2 (03:21→15:45)
[2019-03-13] MEDS: BENADRYL PO SCH ×4 (03:22→21:18)
[2019-03-13] MEDS: HUMULIN R SUBQ SCH ×4 (06:05→20:34)
[2019-03-13] MEDS: HEPARIN SUBQ SCH ×3 (07:54→20:41)
[2019-03-13] MEDS: ASPIRIN PO SCH ×2 (07:54→08:10)
[2019-03-13] MEDS: ZYVOX PO SCH ×3 (07:54→20:41)
--- NOTE | 2019-03-13 11:29 | PROGRESS NOTE ---
DATE: 03/13/2019 SUBJECTIVE: The patient reports feeling fine. Denies any fever or chills. OBJECTIVE: Vital Signs: Temperature 97.6 degrees, heart rate 79, respiratory rate 16, blood pressure 124/64, O2 saturation 98% on room air. General: This is a chronically ill-appearing, 68- year-old, male, lying in bed in no acute distress. Cardiovascular: S1, S2 heard. No murmurs, gallops, or rubs. Regular rate and rhythm. Respiratory: Clear bilaterally to auscultation. No work of breathing or using accessory muscles. Abdomen: Soft, nontender to palpation. A little bit distended, but nontender to palpation. Bowel sounds present. No organomegaly. Extremities: Lower extremity covered with dressing from middle thigh to ankle on the left lower extremity. It continues to have weeping lesions and scaly lesions and reddening all over the extremity, and left upper extremity as well. Neurological: The patient is alert and oriented x3. Moves all 4 extremities. LABORATORY DATA: Reviewed. ASSESSMENT AND PLAN: 1. Longstanding bilateral stasis dermatitis with superimposed cellulitis. Clinically, it looks like he is improving after we have changed the antibiotics. Currently, he is already on Lasix, cefepime, and fluconazole, day #4 for all those medications. Will continue with the same management. Also, there has been a skin biopsy for possible dermatitis. The result, of course, is not available yet at this point. Will continue with the same management. 2. Diabetes mellitus type 2. Will continue with Accu-Chek before meals and also at bedtime, and sliding scale insulin. 3. Chronic kidney disease stage 2. Will continue to monitor BMP. 4. Hypertension. Blood pressure is under control. Will continue with the same management. 5. Disposition. At this point, we are following the lead from Infectious Disease. The patient will be discharged whenever he is ready according to Infectious Disease. cc: Mc Smyth MD
[2019-03-13] MEDS: DIFLUCAN PO SCH (13:39)
--- NOTE | 2019-03-13 14:12 | INFECTIOUS DISEASE PROGRESS NO ---
DATE: 03/13/2019 PRESENT ILLNESS: The patient has bilateral arm and leg cellulitis and dermatitis. MEDICATIONS: This is the fourth day of treatment with the combination of cefepime, Zyvox, and fluconazole. PHYSICAL EXAMINATION: Vital Signs: Temperature is 97.6 degrees, pulse 78, respirations 18, blood pressure 121/84. General: This is a chronically ill-appearing, obese, elderly male. He is in no acute distress. He is having some pruritus, but not a lot. HEENT: He can hear my spoken words and see near objects. He does not have any white patches in his mouth. Neck: There is no pain in his neck when he moves his head or neck. Lungs: Clear to auscultation. Cardiovascular: Regular heart rate. Abdomen: Soft and nontender. Extremities: The patient has bilateral leg and arm erythema with scaling skin. Neurologic: The patient is alert. He is able to ambulate. He does not have a tremor. LABORATORY DATA: CBC shows a white count of 10,100, hemoglobin 13.5, and platelet count 311,000. Creatinine is 1.4. GFR is 51. The only culture we have positive from the patient's skin is one for Staph epidermidis. ASSESSMENT AND PLAN: The patient has bilateral arm and leg cellulitis and dermatitis. For now, I am going to continue Zyvox, fluconazole, and cefepime. The patient does have a skin biopsy done by Dr. Zacarias. The pathologist's report is still pending. COMORBIDITIES: The patient is elderly, obese, and a diabetic. Apparently, he has a history of a chronic stasis dermatitis. cc: Korey Vizcarra MD
[2019-03-13] MEDS: LANTUS INSULIN SUBQ SCH (20:41)
[2019-03-14] MEDS: BENADRYL PO SCH ×3 (03:14→16:10)
[2019-03-14] MEDS: MAXIPIME 2 GM in NS 100 ML IV SCH ×2 (03:14→16:10)
[2019-03-14] MEDS: HUMULIN R SUBQ SCH ×4 (06:40→22:38)
[2019-03-14 07:05] LABS: BASO# 0.03 X1000 (0.0-0.2); BASO% 0.3 % (0.0-0.8); EOS# 2.71 X1000 (0.0-0.7); EOS% 25.6 % (0.0-10.0); HEMATOCRIT 42.2 % (42.0-52.0); HEMOGLOBIN 13.8 g/dL (14.0-18.0); MCH 28.8 PG (27-31); MCHC 32.7 g/dL (33-37); MCV 87.9 FL (81-99); MONO# 1.12 X1000 (0.11-0.59); MONO% 10.6 % (1.7-9.3); MPV 9.1 FL (7.4-10.4); NEUT# 4.82 X1000 (1.4-6.5); NEUT% 45.5 % (42.2-75.2); PLT 341 X1000 (130-400); RDW 16.3 % (11.5-14.5); WBC 10.58 X1000 (4.8-10.8)
[2019-03-14 07:14] LABS: CALCIUM 9.2 mg/dL (8.8-10.2); CREATININE 1.5 mg/dL (0.7-1.2); POTASSIUM 4.8 mmol/L (3.5-5.1)
[2019-03-14 07:58] LABS: EOS 24 % (1-10); LYMPHS 26 % (21-51); MONO 2 % (1-9); SEGS 46 % (42-75)
[2019-03-14] MEDS: ZYVOX PO SCH (08:10)
[2019-03-14] MEDS: HEPARIN SUBQ SCH (08:10)
[2019-03-14] MEDS: ASPIRIN PO SCH (08:11)
--- NOTE | 2019-03-14 08:46 | INFECTIOUS DISEASE PROGRESS NO ---
DATE: 03/14/2019 PRESENT ILLNESS: The patient has bilateral arm and leg cellulitis and dermatitis. The patient's cellulitis and dermatitis started 2 months ago. MEDICATIONS: This is the fifth day of treatment with a combination of cefepime, Zyvox, and fluconazole. PHYSICAL EXAMINATION: Vital Signs: Temperature is 97.6 degrees, pulse 70, respirations 18, blood pressure 123/51. General: This is a chronically ill-appearing, obese, elderly male. He is in no acute distress. HEENT: He can hear my spoken words and see near objects. He does not have any white patches on his tongue. Neck: He does not have any pain when he moves his head or neck. Lungs: Clear to auscultation. Cardiovascular: Heart rate is regular. Abdomen: Soft and nontender. Extremities: The patient has bilateral arm and leg erythema with associated scaling of the skin. Neurologic: The patient is alert. He is able to ambulate. He does not have a tremor. IMAGING AND LABORATORY DATA: There is no new radiographic study. CBC for today shows a white count of 10,580, hemoglobin 13.8, and platelet count 341,000. Creatinine is 1.5. GFR is 47. Pathology report is still pending. ASSESSMENT AND PLAN: The patient has a chronic extremity cellulitis and dermatitis. I will continue the current treatment pending the skin biopsy report. COMORBIDITIES: The patient is elderly. He is obese, and he is a diabetic. cc: Korey Vizcarra MD [facility]
--- NOTE | 2019-03-14 14:03 | PROGRESS NOTE ---
DATE: 03/14/2019 SUBJECTIVE: Patient reports feeling fine. No complaints at this time. No fever or chills. OBJECTIVE: Vital Signs: Temperature 97.5 degrees, heart rate 65, respiratory rate 16, blood pressure 132/62, O2 saturation 99% on room air. General Examination: This is a 68-year-old, chronically ill appearing, male, lying in bed. No acute distress. HEENT: Head is normocephalic and atraumatic. Neck: No JVD noted. No carotid bruits. Cardiovascular Examination: S1 and S2 heard. No murmurs, gallops, or rubs. Regular rate and rhythm. Respiratory Examination: Clear bilaterally to auscultation. No work of breathing or using accessory muscles. Abdomen: Soft, nontender to palpation. Bowel sounds present. No organomegaly. Extremities: Right lower extremity covered by a dressing from the middle thigh to ankle. The left lower extremity, he continues to have weeping lesions and scaly lesions, and reddening all over but I think for the last 3 days, it looks like it is improving. Neurological Examination: The patient is alert and oriented x3. Moves 4 extremities. Laboratory Data: Reviewed. ASSESSMENT AND PLAN: 1. Longstanding bilateral stasis dermatitis with superimposed cellulitis. Clinically, he looks like he is improving after infectious disease has changed antibiotics. Currently, this patient is on Zyvox, cefepime, and fluconazole, day #5 for all those medications. At this point, we will continue with the same management. For suspicion for possible vasculitis, a skin biopsy has been performed. I think we are waiting for the results of that in order to proceed with longer antibiotic treatment. Dr. Vizcarra, as we mentioned before, is following this patient. We will follow recommendations. 2. Diabetes mellitus type 2. We will continue with Accu-Chek before meals and also at bedtime, and sliding scale insulin as well. 3. Chronic kidney disease stage 2. We will continue to monitor BMP. 4. Hypertension. Blood pressure is under control. We will continue with the same management. 5. Disposition. At this point, we are following the lead from infectious disease. The patient will be discharged home whenever the patient is cleared by them. cc: Mc Smyth MD
[2019-03-14] MEDS: DIFLUCAN PO SCH (14:12)
[2019-03-15] MEDS: BENADRYL PO SCH ×4 (00:17→10:00)
[2019-03-15] MEDS: LANTUS INSULIN SUBQ SCH (00:17)
[2019-03-15] MEDS: HEPARIN SUBQ SCH ×2 (00:17→08:37)
[2019-03-15] MEDS: ZYVOX PO SCH ×2 (00:17→08:36)
[2019-03-15] MEDS: MAXIPIME 2 GM in NS 100 ML IV SCH (04:53)
[2019-03-15] MEDS: HUMULIN R SUBQ SCH ×2 (06:06→11:45)
[2019-03-15 07:47] LABS: BASO# 0.03 X1000 (0.0-0.2); BASO% 0.3 % (0.0-0.8); EOS# 2.27 X1000 (0.0-0.7); EOS% 25.6 % (0.0-10.0); HEMATOCRIT 40.7 % (42.0-52.0); HEMOGLOBIN 13.2 g/dL (14.0-18.0); LYMPH# 1.47 X1000 (1.2-3.4); LYMPH% 16.6 % (20.5-51.1); MCH 28.8 PG (27-31); MCHC 32.4 g/dL (33-37); MCV 88.9 FL (81-99); MONO# 1.04 X1000 (0.11-0.59); MONO% 11.8 % (1.7-9.3); MPV 9.2 FL (7.4-10.4); NEUT# 4.04 X1000 (1.4-6.5); NEUT% 45.7 % (42.2-75.2); PLT 287 X1000 (130-400); RBC 4.58 XMIL (4.7-6.1); RDW 16.3 % (11.5-14.5); WBC 8.85 X1000 (4.8-10.8)
[2019-03-15 07:51] LABS: CALCIUM 9.1 mg/dL (8.8-10.2); CREATININE 1.3 mg/dL (0.7-1.2); POTASSIUM 4.4 mmol/L (3.5-5.1)
[2019-03-15 08:22] LABS: BANDS 3 % (0-1); EOS 22 % (1-10); LYMPHS 18 % (21-51); MONO 13 % (1-9); SEGS 44 % (42-75)
[2019-03-15] MEDS: ASPIRIN PO SCH (08:36)
[2019-03-15] MEDS ORDERED: SSD CREAM TOP SCH (11:15)
--- NOTE | 2019-03-15 14:20 | INFECTIOUS DISEASE PROGRESS NO ---
DATE: 03/15/2019 PRESENT ILLNESS: The patient has bilateral arm and leg cellulitis and dermatitis. I have seen actually very little improvement with the antibiotics. The patient has been receiving namely cefepime, Zyvox and fluconazole. Today, we removed the patient's dressing on his right leg that had silver on the dressing and it was dramatic how much better the right leg looked than the left leg and both arms. It appears that the silver is the agent that is causing the patient's rash to improve. MEDICATIONS: The patient is on the 6th day of treatment with cefepime, Zyvox and fluconazole. PHYSICAL EXAMINATION: Vital Signs: Temperature is 98, pulse 89, respirations 20, blood pressure 133/67. General: This is a chronically ill-appearing obese elderly male. He is in no acute distress. Head, Eyes, Ears, Nose and Throat: He can hear my spoken words and see near objects. He does not have any white coating on his tongue. There is no drainage from the nose or ears. Neck: The patient does not have any neck pain when he moves his neck or his head. Lungs: Clear to auscultation. Cardiovascular: Heart rate is regular. Abdomen: Soft and nontender. Neurologic: The patient is alert. He can move his extremities. He is able to ambulate. There is no tremor. Extremities: As mentioned above, we removed the dressing from the right leg that had silver in it and the leg looked much better than the other leg and both arms. LAB AND X-RAY: There is no new radiographic study. CBC shows a white count of 8850, hemoglobin 13.2 and platelet count 287,000. Creatinine is 1.3. GFR is 55. The patient's skin biopsy result is pending. ASSESSMENT AND PLAN: It appears that I just repeat that since the patient's right leg looks so much better than the other leg and both arms, it is due to the fact that the leg had silver on it. Therefore, my plan will be to stop his current antibiotics namely cefepime, Zyvox and fluconazole and the wound nurse Vannessa who was in the room thinks that we should start Silvadene to spread all over the patient's involved areas. I agree with this. I have discontinued cefepime, Zyvox and fluconazole, and the patient is scheduled to have Silvadene put on all the involved areas. The pathologist report on the skin biopsy is still pending. COMORBIDITIES: The patient is elderly. He is obese and he is diabetic. cc: Korey Vizcarra MD
--- NOTE | 2019-03-15 14:38 | INFECTIOUS DISEASE PROGRESS NO ---
DATE: 03/15/2019 ADDENDUM: The patient is going home today. All of his antimicrobial agents have been discontinued. He will be going home. He will be under a nursing service, and they will teach the patient to put Silvadene on the rash on his legs and arms twice a day. I have requested that the patient come to my office in 1 week. Also, the patient's skin biopsy is still pending. cc: Korey Vizcarra MD
[2019-03-15 15:07] VITALS: BP 145/78
--- NOTE | 2019-03-16 03:31 | DISCHARGE SUMMARY ---
ADMISSION DATE: 03/05/2019 DISCHARGE DATE: 03/15/2019 FINAL DISCHARGE DIAGNOSES: 1. Bilateral lower extremity stasis dermatitis with superimposed cellulitis. 2. Bilateral upper extremity cellulitis. 3. Acute kidney injury. 4. Diabetes mellitus type 2. 5. Morbid obesity. 6. Hypertension. 7. Eosinophilia. CONSULTATIONS: 1. ID consultation with Dr. Korey Vizcarra. 2. General Surgery consultation with Dr. Zacarias. PROCEDURES: Punch biopsy of the left leg, obtained on 03/10/2019. HOSPITAL COURSE: Mr. Ribeiro is a 68-year-old male with a history of multiple medical problems who presented to the ER with pain and swelling and erythema involving his arms and legs. Upon further assessment, the patient was noted to have a diffuse erythematous itchy rash involving the arms and legs and he was concerned about infection, so the patient was admitted to the hospitalist service and ID was consulted. The patient was started on broad-spectrum antibiotics. Blood cultures as well as a wound culture were obtained. Blood cultures were noted to be negative after 5 days, however, the left arm wound culture grew out Staphylococcus epidermidis. General Surgery was consulted for a skin biopsy to determine the etiology of the rash. The patient underwent a punch biopsy of the left leg on 03/10/2019. The patient was treated with antibiotics for several days. Antibiotics were discontinued on the 03/15/2019, and the patient was started on a sulphur cream to be applied to his arms and legs. The patient continued to improve clinically and was ultimately cleared for discharge home with home health on 03/15/2019. At the time of this dictation the pathology report is still pending. The patient will follow up with Dr. Korey Vizcarra in 1 week to review the results of the pathology report and to discuss further management. The patient will also receive wound care via home health services. DISCHARGE MEDICATIONS: 1. Aspirin 81 mg p.o. daily. 2. Zyrtec 10 mg oral daily. 3. Lasix 20 mg p.o. every morning. 4. Lisinopril 30 mg p.o. every morning. 5. Metformin 500 mg oral with breakfast. 6. SSD cream applied to the arms and legs twice a day. DISCHARGE DIET: 1800 ADA diet low-sodium diet. ACTIVITY: As tolerated. FOLLOWUP INSTRUCTIONS: The patient will need to follow up with Dr. Korey Vizcarra in 1 week. The patient will need to follow up with Dr. Ragsdale in 1 week. cc: MD Jessica Rey CRNP
== END 2019-03-15 19:47 | disposition home health service (06) | DRG 603 ==
LOC: ED 21:34 → 3N 03-05 00:24 → SUATTDRO 03-05 00:24 → 3N 03-05 12:17
PROVIDERS: ATTEND Internal Medicine
CPT/HCPCS: 80048; 80053; 80069; 82306; 82948; 83516; 83605; 83615; 84443; 85025; 85651; 86038; 86039; 86140; 86235; 87040; 87070; 87077; 87186; 88305; 96365; 99284; A9270; J0690; J0692; J0696; J1644; J1815; J1940; J3370; J7030; J7040; J7050; XXXXX